=== PATIENT | female | born 1995 | race Caucasian/White ===

== ENCOUNTER 2017-12-14 21:10 | Inpatient (IN) ==
[2017-12-14] MEDS: LACTATED RINGERS 1,000 ML IV SCH (21:24)
[2017-12-14] MEDS ORDERED: ONDANSETRON 4 MG/2 ML VIAL IV PRN (21:31)
[2017-12-14] MEDS ORDERED: MEPERIDINE 50 MG/1 ML VIAL IV PRN (21:31)
[2017-12-14] MEDS ORDERED: BUTORPHANOL 2 MG/ML VIAL IV PRN (21:31)
[2017-12-14] MEDS: ACETAMINOPHEN 500 MG TABLET PO SCH (21:44)
[2017-12-14] MEDS: BETAMETH SODIUM PHOS/ACETATE 30 MG/5 ML VIAL IM SCH (21:48)
[2017-12-14] MEDS ORDERED: SODIUM CHLORIDE 0.9% 1,000 ML IV PRN (22:00)
[2017-12-14 22:35] LABS: Apearance,Urine CLEAR (Clear); Bilirubin,Urine Negative (Negative); Blood, Urine Large mg/dL (Negative); Glucose,Urine (UA) Negative (Negative); Ketones,Urine 20 mg/dL (Negative); Mucus,Urine Occasional /LPF (Occasional); Nitrite,Urine Negative (Negative); Protein,Urine 30 MG/DL; RBC,Urine 135 /HPF (0-4); Squamous Epithelial Cell,Urine Occasional /HPF (0-10); Urine Color Yellow (Yellow); Urine Specific Gravity > 1.060 (1.001-1.035); Urine Urobilinogen < 2.0 EU/DL (0.2-1.0); WBC,Urine 8 /HPF (0-6)
[2017-12-14 23:54] LABS: Barbiturates Screen,Urine Negative (Negative); Benzodiazepines Screen,Urine Negative (Negative); Cannabinoid Screen,Urine Negative (Negative); Opiate Screen,Urine Negative (Negative); Phencyclidine Screen,Urine Negative (Negative)
[2017-12-15 01:20] LABS: Basophils % 0.1 % (0.0-0.8); Hematocrit 30.9 VOL% (35.7-47.0); Hemoglobin 10.6 GM/DL (12.0-16.0); Immature Granulocytes % 0.6 %; Immature Granulocytes Absolute 0.08 #; Lymphocytes # 0.7 10*3/uL (1.4-4.0); Lymphocytes % 5.3 % (21.3-54.2); Mean Corpuscular HGB Conc 34.3 GM/DL (32-36); Mean Corpuscular Hemoglobin 31 PG (27-34); Mean Corpuscular Volume 90.1 FL (87-102); Mean Platelet Volume 10.7 FL (9.6-12.0); Monocytes # 0.2 10*3/uL (0.11-0.8); Monocytes % 1.6 % (1.7-12.7); Neutrophils % 92.4 % (38.7-73.9); Platelet Count 188 T/CUMM (130-400); Red Blood Count 3.43 MC/CUMM (3.8-5.5); Red Cell Distribution Width 12.5 % (9.3-17.3)
[2017-12-15 01:40] LABS: Alanine Aminotransferase 16 U/L (13-56); Albumin 2.8 G/DL (3.4-5.0); Alkaline Phosphatase 80 U/L (45-117); Aspartate Amino Transferase 18 U/L (0-37); Bilirubin,Total < 0.39 MG/DL (0.2-1.0); Blood Urea Nitrogen 8 MG/DL (7-18); Calcium 8.5 MG/DL (8.5-10.1); Glucose 117 MG/DL (74-106); Osmolality,Calculated 277.4 MOS/KG (273-304); Potassium 3.7 MMOL/L (3.5-5.1); Sodium 140 MMOL/L (136-145); Total Protein 6.8 G/DL (6.4-8.3)
[2017-12-15 01:50] LABS: Band Neutrophils 24 % (0-10); Lymphocytes 5 % (20-55); Segmented Neutrophils 71 % (50-85); Total Cells Counted 100
[2017-12-15] MEDS ORDERED: SODIUM CHLORIDE 0.9% 1,000 ML IV PRN (03:06)
[2017-12-15] MEDS: LACTATED RINGERS 1,000 ML IV SCH ×2 (08:02→22:30)
[2017-12-15] MEDS: BETAMETH SODIUM PHOS/ACETATE 30 MG/5 ML VIAL IM SCH (10:18)
[2017-12-15] MEDS: ACETAMINOPHEN 500 MG TABLET PO SCH ×2 (10:22→22:31)
[2017-12-15 11:23] LABS: Basophils % 0.1 % (0.0-0.8); Hematocrit 31.1 VOL% (35.7-47.0); Hemoglobin 10.5 GM/DL (12.0-16.0); Immature Granulocytes % 0.7 %; Immature Granulocytes Absolute 0.09 #; Lymphocytes # 0.8 10*3/uL (1.4-4.0); Lymphocytes % 6.6 % (21.3-54.2); Mean Corpuscular HGB Conc 33.8 GM/DL (32-36); Mean Corpuscular Hemoglobin 30 PG (27-34); Mean Corpuscular Volume 90.1 FL (87-102); Mean Platelet Volume 11.1 FL (9.6-12.0); Monocytes # 0.5 10*3/uL (0.11-0.8); Monocytes % 3.6 % (1.7-12.7); Neutrophils # 11.1 10*3/uL (1.4-7.4); Platelet Count 198 T/CUMM (130-400); Red Blood Count 3.45 MC/CUMM (3.8-5.5); Red Cell Distribution Width 12.3 % (9.3-17.3); White Blood Count 12.5 T/CUMM (4-12)
[2017-12-16] MEDS: BETAMETH SODIUM PHOS/ACETATE 30 MG/5 ML VIAL IM SCH (04:15)
[2017-12-16 04:37] LABS: Basophils % 0.1 % (0.0-0.8); Eosinophils % 0.1 % (0.00-10.9); Hematocrit 27.9 VOL% (35.7-47.0); Hemoglobin 9.7 GM/DL (12.0-16.0); Immature Granulocytes % 0.6 %; Immature Granulocytes Absolute 0.07 #; Lymphocytes # 1.3 10*3/uL (1.4-4.0); Lymphocytes % 10.1 % (21.3-54.2); Mean Corpuscular HGB Conc 34.8 GM/DL (32-36); Mean Corpuscular Hemoglobin 31 PG (27-34); Mean Corpuscular Volume 87.7 FL (87-102); Mean Platelet Volume 11.1 FL (9.6-12.0); Monocytes # 0.7 10*3/uL (0.11-0.8); Monocytes % 5.8 % (1.7-12.7); Neutrophils # 10.3 10*3/uL (1.4-7.4); Neutrophils % 83.3 % (38.7-73.9); Platelet Count 185 T/CUMM (130-400); Red Blood Count 3.18 MC/CUMM (3.8-5.5); Red Cell Distribution Width 12.4 % (9.3-17.3); White Blood Count 12.3 T/CUMM (4-12)
[2017-12-16] MEDS: ACETAMINOPHEN 500 MG TABLET PO SCH ×2 (15:44→18:24)
[2017-12-16] MEDS ORDERED: ACETAMINOPHEN 500 MG TABLET PO PRN (18:27)
[2017-12-16] MEDS: LACTATED RINGERS 1,000 ML IV SCH (18:29)
[2017-12-17 05:03] LABS: Basophils % 0.3 % (0.0-0.8); Eosinophils % 0.5 % (0.00-10.9); Hematocrit 29.2 VOL% (35.7-47.0); Hemoglobin 9.6 GM/DL (12.0-16.0); Immature Granulocytes % 0.3 %; Immature Granulocytes Absolute 0.02 #; Lymphocytes # 1.6 10*3/uL (1.4-4.0); Lymphocytes % 21.7 % (21.3-54.2); Mean Corpuscular HGB Conc 32.9 GM/DL (32-36); Mean Corpuscular Hemoglobin 30 PG (27-34); Mean Corpuscular Volume 91.3 FL (87-102); Mean Platelet Volume 10.9 FL (9.6-12.0); Monocytes # 0.6 10*3/uL (0.11-0.8); Neutrophils # 5.1 10*3/uL (1.4-7.4); Neutrophils % 69.2 % (38.7-73.9); Platelet Count 176 T/CUMM (130-400); Red Cell Distribution Width 12.5 % (9.3-17.3); White Blood Count 7.3 T/CUMM (4-12)
[2017-12-17] MEDS ORDERED: DOCUSATE SODIUM 100 MG CAPSULE PO SCH (10:30)
[2017-12-17 12:13] VITALS: BP 95/50
== END 2017-12-17 17:05 | disposition home or self-care (01) | DRG 781 ==
LOC: N.LDOUT 21:10 → N.LD 21:13
PROVIDERS: ADMIT Obstetrics & Gynecology; ATTEND Obstetrics & Gynecology

== ENCOUNTER 2018-03-18 01:13 | Inpatient (IN) ==
[2018-03-18] MEDS ORDERED: BUTORPHANOL 2 MG/ML VIAL IV PRN (01:34)
[2018-03-18] MEDS ORDERED: ONDANSETRON 4 MG/2 ML VIAL IV PRN ×2 (01:34→11:30)
[2018-03-18] MEDS ORDERED: PROMETHAZINE 25 MG/1 ML VIAL IM ONE (01:36)
[2018-03-18] MEDS ORDERED: diphenhydrAMINE 50 MG/1 ML VIAL IV PRN ×2 (01:36)
[2018-03-18] MEDS ORDERED: LACTATED RINGERS 1,000 ML IV ONE (01:36)
[2018-03-18] MEDS ORDERED: CITRIC ACID/SODIUM CITRATE 30 ML UDCUP PO ONE (01:36)
[2018-03-18] MEDS ORDERED: hydrOXYzine HCL 25 MG/1 ML VIAL IM PRN (01:36)
[2018-03-18] MEDS ORDERED: ePHEDrine 50 MG/ML AMP IV PRN (01:36)
[2018-03-18] MEDS ORDERED: NALOXONE 0.4 MG/ML VIAL IV PRN ×2 (01:36→12:30)
[2018-03-18] MEDS ORDERED: FAMOTIDINE 20 MG/2 ML VIAL IV ONE (01:36)
[2018-03-18 01:53] LABS: Basophils % 0.2 % (0.0-0.8); Eosinophils # 0.1 10*3/uL (0.0-0.87); Eosinophils % 1.5 % (0.00-10.9); Hematocrit 32.5 VOL% (35.7-47.0); Hemoglobin 10.5 GM/DL (12.0-16.0); Immature Granulocytes % 0.4 %; Immature Granulocytes Absolute 0.04 #; Lymphocytes # 1.6 10*3/uL (1.4-4.0); Lymphocytes % 17.3 % (21.3-54.2); Mean Corpuscular HGB Conc 32.3 GM/DL (32-36); Mean Corpuscular Hemoglobin 27 PG (27-34); Mean Corpuscular Volume 83.1 FL (87-102); Mean Platelet Volume 11.4 FL (9.6-12.0); Monocytes # 0.7 10*3/uL (0.11-0.8); Monocytes % 7.1 % (1.7-12.7); Neutrophils # 6.8 10*3/uL (1.4-7.4); Neutrophils % 73.5 % (38.7-73.9); Platelet Count 221 T/CUMM (130-400); Red Blood Count 3.91 MC/CUMM (3.8-5.5); Red Cell Distribution Width 13.8 % (9.3-17.3); White Blood Count 9.3 T/CUMM (4-12)
[2018-03-18 02:15] LABS: Alanine Aminotransferase 13 U/L (13-56); Albumin 2.5 G/DL (3.4-5.0); Alkaline Phosphatase 164 U/L (45-117); Aspartate Amino Transferase 10 U/L (0-37); Bilirubin,Total < 0.39 MG/DL (0.2-1.0); Blood Urea Nitrogen 9 MG/DL (7-18); Calcium 9.2 MG/DL (8.5-10.1); Glucose 101 MG/DL (74-106); Osmolality,Calculated 279.3 MOS/KG (273-304); Potassium 3.8 MMOL/L (3.5-5.1); Sodium 141 MMOL/L (136-145); Total Protein 7.4 G/DL (6.4-8.3)
[2018-03-18] MEDS: LACTATED RINGERS 1,000 ML IV SCH ×2 (02:30→23:25)
[2018-03-18] MEDS: fentaNYL 2 MCG/ROPIV 0.2% EPID 100 ML EPIDURAL SCH ×2 (02:30→09:47)
[2018-03-18] MEDS ORDERED: AMPICILLIN INJ 2,000 MG in SODIUM CHLORIDE 0.9% 100 ML IV ONE (03:05)
[2018-03-18] MEDS ORDERED: SODIUM CHLORIDE 0.9% 100 ML IV ONE (03:06)
[2018-03-18] MEDS ORDERED: AMPICILLIN 2,000 MG VIAL ONE (03:06)
[2018-03-18] MEDS ORDERED: OXYTOCIN/LR 20 UNIT/1,000 ML BAG IV ONE ×3 (06:31→15:05)
[2018-03-18] MEDS ORDERED: OXYTOCIN/LR 20 UNIT/1,000 ML BAG IV SCH (07:00)
[2018-03-18 07:06] LABS: Amorphous Crystals,Urine Occasional /HPF (Few); Apearance,Urine CLEAR (Clear); Bacteria,Urine Occasional /HPF (Few); Bilirubin,Urine Negative (Negative); Blood, Urine Negative (Negative); Glucose,Urine (UA) Negative (Negative); Ketones,Urine Negative (Negative); Mucus,Urine Occasional /LPF (Occasional); Nitrite,Urine Negative (Negative); Protein,Urine Negative; RBC,Urine 1 /HPF (0-4); Squamous Epithelial Cell,Urine Occasional /HPF (0-10); Urine Color Straw (Yellow); Urine Specific Gravity 1.006 (1.001-1.035); Urine Urobilinogen < 2.0 EU/DL (0.2-1.0); WBC,Urine <1 /HPF (0-6)
[2018-03-18] MEDS ORDERED: BUTORPHANOL 1 MG/ML VIAL ONE (07:31)
[2018-03-18] MEDS ORDERED: METHYLERGONOVINE 0.2 MG/1 ML AMP ONE (07:32)
[2018-03-18] MEDS ORDERED: miSOPROStol 200 MCG TABLET ONE (07:32)
[2018-03-18] MEDS ORDERED: AMPICILLIN INJ 2,000 MG in SODIUM CHLORIDE 0.9% 100 ML IV SCH (09:00)
[2018-03-18] MEDS ORDERED: RHO(D) IMMUNE GLOBULIN 300 MCG SYRINGE IM ONE (11:30)
[2018-03-18] MEDS ORDERED: LANOLIN 50% CREAM 0.3 OZ TUBE TOP PRN (11:30)
[2018-03-18] MEDS ORDERED: MEASLES/MUMPS/RUBELLA VACCINE 0.5 ML VIAL SUBCUT ONE (11:30)
[2018-03-18] MEDS ORDERED: BENZOCAINE 20%/MENTHOL 0.5% SPRAY 56 GM CAN TOP PRN (11:30)
[2018-03-18] MEDS ORDERED: HYDROCORTISONE 2.5% RECTAL CREAM 30 GM TUBE TOP PRN (11:30)
[2018-03-18] MEDS ORDERED: oxyCODONE/ACETAMINOPHEN 5-325 MG TABLET PO PRN (11:30)
[2018-03-18] MEDS ORDERED: BISACODYL 10 MG SUPP RECTAL PRN (11:30)
[2018-03-18] MEDS ORDERED: ACETAMINOPHEN 325 MG TABLET PO PRN (11:30)
[2018-03-18] MEDS ORDERED: DIPH/TET/ACEL PERT BOOSTER VACCINE 0.5 ML VIAL IM ONE (11:30)
[2018-03-18] MEDS ORDERED: WITCH HAZEL PADS 100/JAR TOP PRN (11:30)
[2018-03-18] MEDS ORDERED: HYDROmorphone PCA 30 MG/30 ML SYRINGE IV SCH (12:30)
[2018-03-18] MEDS ORDERED: MIDAZOLAM 2 MG/2 ML VIAL ONE (13:25)
[2018-03-18] MEDS ORDERED: MORPHINE 10 MG/10 ML VIAL ONE (13:25)
[2018-03-18] MEDS ORDERED: PROPOFOL 200 MG/20 ML VIAL IV ONE (13:25)
[2018-03-18] MEDS ORDERED: fentaNYL 100 MCG/2 ML VIAL ONE (13:25)
[2018-03-18] MEDS ORDERED: ONDANSETRON 4 MG/2 ML VIAL ONE (13:26)
[2018-03-18] MEDS ORDERED: LIDOCAINE MPF 2% /EPI 20 ML VIAL ONE (13:26)
[2018-03-18] MEDS: ceFAZolin 1,000 MG in SYRINGE 1 EACH IV SCH (18:22)
[2018-03-18] MEDS: DOCUSATE SODIUM 100 MG CAPSULE PO SCH (21:02)
[2018-03-19] MEDS: ceFAZolin 1,000 MG in SYRINGE 1 EACH IV SCH (02:42)
[2018-03-19 06:49] LABS: Basophils % 0.1 % (0.0-0.8); Eosinophils % 0.3 % (0.00-10.9); Hematocrit 24.4 VOL% (35.7-47.0); Immature Granulocytes % 0.5 %; Immature Granulocytes Absolute 0.06 #; Lymphocytes % 8.5 % (21.3-54.2); Mean Corpuscular Hemoglobin 27 PG (27-34); Mean Corpuscular Volume 84.7 FL (87-102); Monocytes # 0.8 10*3/uL (0.11-0.8); Monocytes % 6.7 % (1.7-12.7); Neutrophils # 9.9 10*3/uL (1.4-7.4); Neutrophils % 83.9 % (38.7-73.9); Red Cell Distribution Width 14.1 % (9.3-17.3); White Blood Count 11.8 T/CUMM (4-12)
[2018-03-19 06:50] LABS: Hemoglobin 7.8 GM/DL (12.0-16.0); Platelet Count 156 T/CUMM (130-400); Red Blood Count 2.88 MC/CUMM (3.8-5.5)
[2018-03-19] MEDS: oxyCODONE/ACETAMINOPHEN 5-325 MG TABLET PO PRN ×2 (09:08→18:50)
[2018-03-19] MEDS: DOCUSATE SODIUM 100 MG CAPSULE PO SCH ×2 (09:08→21:57)
[2018-03-19] MEDS: FERROUS SULFATE 325 MG TABLET PO SCH ×2 (09:08→21:57)
[2018-03-19] MEDS: IBUPROFEN 800 MG TABLET PO PRN ×2 (09:09→18:50)
[2018-03-19] MEDS ORDERED: MAGNESIUM HYDROXIDE SUSP 30 ML UDCUP PO PRN (20:56)
[2018-03-19] MEDS ORDERED: SIMETHICONE CHEW 80 MG TABLET PO PRN (20:57)
[2018-03-20 07:25] VITALS: BP 121/78
[2018-03-20] MEDS: FERROUS SULFATE 325 MG TABLET PO SCH (08:38)
[2018-03-20] MEDS: IBUPROFEN 800 MG TABLET PO PRN (08:38)
[2018-03-20] MEDS: DOCUSATE SODIUM 100 MG CAPSULE PO SCH (08:38)
[2018-03-20] MEDS: oxyCODONE/ACETAMINOPHEN 5-325 MG TABLET PO PRN (08:40)
[2018-03-20] MEDS ORDERED: INFLUENZA VIRUS VACCINE 0.5 ML SYRINGE IM ONE (10:50)
[2018-03-21] MEDS ORDERED: INFLUENZA VIRUS VACCINE 0.5 ML SYRINGE IM ONE (09:00)
== END 2018-03-20 14:40 | disposition home or self-care (01) | DRG 788 ==
LOC: N.LDOUT 01:13 → N.LD 01:15 → N.OB 15:32
PROVIDERS: ADMIT Specialist; ATTEND Specialist
PROC: LDCSECT (ICD-10-PCS; 2018-03-18 10:30)

== ENCOUNTER 2020-01-21 05:39 | Inpatient (IN) ==
[2020-01-21] MEDS ORDERED: BUTORPHANOL 2 MG/ML VIAL IV PRN (06:00)
[2020-01-21] MEDS ORDERED: ONDANSETRON 4 MG/2 ML VIAL IV PRN ×2 (06:00→13:03)
[2020-01-21] MEDS ORDERED: MEPERIDINE 50 MG/1 ML VIAL IV PRN (06:00)
[2020-01-21] MEDS ORDERED: FAMOTIDINE 20 MG/2 ML VIAL IV SCH (06:00)
[2020-01-21] MEDS ORDERED: LACTATED RINGERS 1,000 ML IV SCH (06:00)
[2020-01-21] MEDS ORDERED: LACTATED RINGERS 500 ML IV PRN (06:00)
[2020-01-21] MEDS ORDERED: CITRIC ACID/SODIUM CITRATE 30 ML UDCUP PO ONE (06:10)
[2020-01-21] MEDS ORDERED: OXYTOCIN/LR 20 UNIT/1,000 ML BAG IV ONE ×2 (06:12→13:03)
[2020-01-21] MEDS ORDERED: ceFAZolin 2,000 MG in PREMIX 1 EACH IV ONE (06:30)
[2020-01-21 06:39] LABS: Basophils % 0.5 % (0.0-0.8); Eosinophils # 0.2 10*3/uL (0.0-0.87); Hematocrit 28.2 VOL% (35.7-47.0); Hemoglobin 8.3 GM/DL (12.0-16.0); Immature Granulocytes % 0.7 %; Immature Granulocytes Absolute 0.06 #; Lymphocytes # 1.7 10*3/uL (1.4-4.0); Lymphocytes % 19.6 % (21.3-54.2); Mean Corpuscular HGB Conc 29.4 GM/DL (32-36); Mean Corpuscular Volume 77.3 FL (87-102); Mean Platelet Volume 11.1 FL (9.6-12.0); Monocytes % 6.4 % (1.7-12.7); Neutrophils % 70.8 % (38.7-73.9); Platelet Count 247 T/CUMM (130-400); Red Blood Count 3.65 MC/CUMM (3.8-5.5); Red Cell Distribution Width 17.7 % (9.3-17.3); White Blood Count 8.6 T/CUMM (4-12)
[2020-01-21 06:55] LABS: Hypochromasia 1+; Microcytosis 1+; Platelet Estimate Adequate
[2020-01-21 06:56] LABS: Albumin 2.7 G/DL (3.4-5.0); Bilirubin,Total 0.8 MG/DL (0.2-1.0); Calcium 8.5 MG/DL (8.5-10.1); Total Protein 7.4 G/DL (6.4-8.3)
[2020-01-21] MEDS ORDERED: MORPHINE 10 MG/10 ML VIAL ONE (11:31)
[2020-01-21] MEDS ORDERED: PHENYLEPHRINE 1 MG/10 ML SYRINGE IV ONE (11:31)
[2020-01-21] MEDS ORDERED: MIDAZOLAM 2 MG/2 ML VIAL ONE (11:31)
[2020-01-21] MEDS ORDERED: BUPIVACAINE SPINAL 0.75% 2 ML AMP SPINAL ONE (11:32)
[2020-01-21] MEDS ORDERED: propofoL 200 MG/20 ML VIAL IV ONE (11:32)
[2020-01-21] MEDS ORDERED: ROPIVACAINE 0.5% 30 ML VIAL ONE (11:34)
[2020-01-21] MEDS ORDERED: DEXAMETHASONE 4 MG/1 ML VIAL ONE (11:35)
[2020-01-21 12:57] LABS: Cord Venous Blood HCO3 23.3 MMOL/L; Cord Venous Blood PCO2 42.5 MMHG; Cord Venous Blood PO2 30.4
[2020-01-21 13:03] LABS: Apearance,Urine CLEAR (Clear); Bilirubin,Urine Negative (Negative); Blood, Urine Negative (Negative); Glucose,Urine (UA) Negative (Negative); Ketones,Urine 20 mg/dL (Negative); Mucus,Urine Occasional /LPF (Occasional); Nitrite,Urine Negative (Negative); Protein,Urine Negative; RBC,Urine <1 /HPF (0-4); Urine Color Straw (Yellow); Urine Specific Gravity 1.009 (1.001-1.035); Urine Urobilinogen < 2.0 EU/DL (0.2-1.0); WBC,Urine <1 /HPF (0-6)
[2020-01-21] MEDS ORDERED: RHO(D) IMMUNE GLOBULIN 300 MCG SYRINGE IM ONE (13:03)
[2020-01-21] MEDS ORDERED: oxyCODONE/ACETAMINOPHEN 5-325 MG TABLET PO PRN (13:03)
[2020-01-21] MEDS ORDERED: BENZOCAINE 20%/MENTHOL 0.5% SPRAY 56 GM CAN TOP PRN (13:03)
[2020-01-21] MEDS ORDERED: HYDROCORTISONE 2.5% RECTAL CREAM 30 GM TUBE TOP PRN (13:03)
[2020-01-21] MEDS ORDERED: BISACODYL 10 MG SUPP RECTAL PRN (13:03)
[2020-01-21] MEDS ORDERED: ACETAMINOPHEN 325 MG TABLET PO PRN (13:03)
[2020-01-21] MEDS ORDERED: DIPH/TET/ACEL PERT BOOSTER VACCINE 0.5 ML VIAL IM ONE (13:03)
[2020-01-21] MEDS ORDERED: WITCH HAZEL PADS 100/JAR TOP PRN (13:03)
[2020-01-21] MEDS ORDERED: MEASLES/MUMPS/RUBELLA VACCINE 0.5 ML VIAL SUBCUT ONE (13:03)
[2020-01-21] MEDS ORDERED: LANOLIN 50% CREAM 0.3 OZ TUBE TOP PRN (13:03)
[2020-01-21] MEDS ORDERED: fentaNYL 100 MCG/2 ML VIAL ONE ×2 (13:28→13:30)
[2020-01-21] MEDS: KETOROLAC 30 MG/1 ML VIAL IV SCH ×2 (14:06→20:32)
[2020-01-21] MEDS: ACETAMINOPHEN 500 MG TABLET PO SCH ×2 (14:09→20:28)
[2020-01-21] MEDS ORDERED: diphenhydrAMINE 50 MG/1 ML VIAL IV PRN (17:51)
[2020-01-21] MEDS: ceFAZolin 1,000 MG in SYRINGE 1 EACH IV SCH (20:29)
[2020-01-21] MEDS: DOCUSATE SODIUM 100 MG CAPSULE PO SCH (21:09)
[2020-01-21] MEDS ORDERED: diphenhydrAMINE CAP 25 MG CAPSULE PO PRN (23:15)
[2020-01-22] MEDS: ACETAMINOPHEN 500 MG TABLET PO SCH ×2 (02:05→09:42)
[2020-01-22] MEDS: KETOROLAC 30 MG/1 ML VIAL IV SCH ×2 (02:06→09:42)
[2020-01-22] MEDS: ceFAZolin 1,000 MG in SYRINGE 1 EACH IV SCH (06:30)
[2020-01-22 07:32] LABS: Basophils % 0.1 % (0.0-0.8); Eosinophils % 0.2 % (0.00-10.9); Hemoglobin 6.7 GM/DL (12.0-16.0); Immature Granulocytes % 0.7 %; Lymphocytes % 13.4 % (21.3-54.2); Mean Corpuscular HGB Conc 29.1 GM/DL (32-36); Mean Corpuscular Volume 77.4 FL (87-102); Mean Platelet Volume 11.3 FL (9.6-12.0); Monocytes % 5.5 % (1.7-12.7); Neutrophils % 80.1 % (38.7-73.9); Platelet Count 215 T/CUMM (130-400); Red Blood Count 2.97 MC/CUMM (3.8-5.5); Red Cell Distribution Width 17.3 % (9.3-17.3); White Blood Count 14.9 T/CUMM (4-12)
[2020-01-22 07:34] LABS: Hypochromasia 2+; Microcytosis 1+; Platelet Estimate Adequate
[2020-01-22] MEDS: DOCUSATE SODIUM 100 MG CAPSULE PO SCH ×2 (09:48→20:57)
[2020-01-22] MEDS: FERROUS SULFATE 325 MG TABLET PO SCH ×2 (09:48→20:57)
[2020-01-22] MEDS: IBUPROFEN 800 MG TABLET PO PRN ×2 (14:40→19:57)
[2020-01-22] MEDS: oxyCODONE/ACETAMINOPHEN 5-325 MG TABLET PO PRN ×2 (14:40→19:58)
[2020-01-23] MEDS: oxyCODONE/ACETAMINOPHEN 5-325 MG TABLET PO PRN (03:30)
[2020-01-23] MEDS: IBUPROFEN 800 MG TABLET PO PRN (03:30)
[2020-01-23] MEDS ORDERED: SIMETHICONE CHEW 80 MG TABLET PO PRN (09:10)
[2020-01-23] MEDS: FERROUS SULFATE 325 MG TABLET PO SCH (09:19)
[2020-01-23] MEDS: DOCUSATE SODIUM 100 MG CAPSULE PO SCH (09:19)
[2020-01-23 09:28] VITALS: BP 104/48
== END 2020-01-23 12:50 | disposition home or self-care (01) | DRG 788 ==
LOC: N.LD 05:39 → N.OB 17:25
PROVIDERS: ADMIT Specialist; ATTEND Specialist
PROC: LDCSECT (ICD-10-PCS; 2020-01-21 12:00)